=== PATIENT | male | born 1960 | race Caucasian/White ===

== ENCOUNTER → 2024-11-30 06:26 | Outpatient (REF) | payer MEDICARE, SELFPAY | LOC: RAD 06:26 | PROVIDERS: ATTENDING PHYSICIAN Internal Medicine Cardiovascular Disease; FAMILY PHYSICIAN Family Medicine | DX: I65.23 Occlusion and stenosis of bilateral carotid arteries (principal) | CPT/HCPCS: 93880 ==

== ENCOUNTER → 2025-01-16 09:02 | Outpatient (REF) | payer MEDICARE, SELFPAY | LOC: RCS 09:02 | PROVIDERS: ATTENDING PHYSICIAN Internal Medicine Cardiovascular Disease | DX: I10 Essential (primary) hypertension (principal); R07.89 Other chest pain; R06.09 Other forms of dyspnea; R68.89 Other general symptoms and signs | CPT/HCPCS: 93017; 93350 ==